=== PATIENT | female | born 1970 | race Caucasian/White ===

== ENCOUNTER 2022-05-10 06:23 | Emergency (ER) | payer OTHER ==
[~2022-05-10] VITALS: Ht 177.8 cm; Wt 63.5 kg
[2022-05-10 06:51] LABS: BASOPHILS % 0.2 % (0.0-1.0); HEMATOCRIT 35.3 % (34.2-44.1); HEMOGLOBIN 10.1 g/dL (12.0-16.0); LYMPHOCYTES # (AUTO) 1.9 (1.0-3.2); LYMPHOCYTES % 23.9 % (18.0-39.1); MEAN CORPUSCULAR HEMOGLOBIN 22.1 pg (28-32); MEAN CORPUSCULAR HGB CONC 28.6 g/dL (31-35); MEAN CORPUSCULAR VOLUME 77.4 fL (81-99); MONOCYTES # (AUTO) 0.5 (0.2-0.8); MONOCYTES % 5.8 % (4.4-11.3); NEUTROPHILS # (AUTO) 5.7 (2.1-6.9); NEUTROPHILS % 69.9 % (38.7-80.0); PLATELET COUNT 355 x10e3/uL (140-360); RED BLOOD COUNT 4.56 x10e6/uL (3.6-5.1); RED CELL DISTRIBUTION WIDTH 19.2 % (11.7-14.4)
[2022-05-10 07:05] LABS: INR 0.94; PROTHROMBIN TIME 13.4 seconds (11.9-14.5)
[2022-05-10 07:06] LABS: PARTIAL THROMBOPLASTIN TIME 27.5 seconds (23.8-35.5)
[2022-05-10 07:12] LABS: ALBUMIN/GLOBULIN RATIO 1.1 (0.8-2.0); ANION GAP 16.5 mmol/L (8-16); CALCIUM 9.3 mg/dL (8.4-10.2); CREATININE, SERUM 0.83 mg/dL (0.57-1.11); POTASSIUM 3.5 mmol/L (3.5-5.1)
[2022-05-10 07:19] LABS: CREATINE KINASE MB 0.6 ng/mL (0-5.0)
[2022-05-10] MEDS ORDERED: PREDNISONE10 MG PO (07:43)
[2022-05-10] MEDS ORDERED: VALTREX1000 MG PO (07:43)
[2022-05-10 07:55] LABS: ANISOCYTOSIS MODERATE; HYPOCHROMASIA MODERATE; MICROCYTOSIS MODERATE; PLATELET ESTIMATE ADEQUATE; PLATELET MORPHOLOGY COMMENT FEW LARGE; RBC MORPHOLOGY COMMENT ABNORMAL
[2022-05-10 08:04] VITALS: BP 115/83
== END 2022-05-10 08:04 | disposition home or self-care (01) ==
LOC: ER 06:26
DX: G51.0 Bell's palsy (principal)
CPT/HCPCS: 36415; 70450; 71045; 80053; 82550; 82553; 84484; 85025; 85610; 85730; 99284

== ENCOUNTER 2023-12-11 09:00 | Outpatient (RCR) | payer OTHER ==
[~2023-12-11 09:00] MED LIST: HYDROCODON-ACE1 EA11 PO; NAPROXEN250 MG PO; PREDNISONE10 MG PO; VALTREX1000 MG PO
== END 2023-12-22 ==
LOC: OT 09:00
PROVIDERS: ATTEND Orthopaedic Surgery Foot and Ankle Surgery
DX: S52.552D Other extraarticular fracture of lower end of left radius, subsequent encounter for closed fracture with routine healing (principal); M25.532 Pain in left wrist; M25.632 Stiffness of left wrist, not elsewhere classified; R53.1 Weakness

== ENCOUNTER 2024-01-15 09:00 | Outpatient (RCR) | payer OTHER | END 2024-01-22 | LOC: OT 09:00 | PROVIDERS: ATTEND Orthopaedic Surgery Foot and Ankle Surgery | DX: S52.592A Other fractures of lower end of left radius, initial encounter for closed fracture (principal) ==

== ENCOUNTER 2024-02-19 15:56 | Outpatient (RCR) | payer OTHER | END 2024-02-22 | LOC: OT 15:56 | PROVIDERS: ATTEND Orthopaedic Surgery Foot and Ankle Surgery | DX: S52.502A Unspecified fracture of the lower end of left radius, initial encounter for closed fracture (principal) ==